=== PATIENT | male | born 1995 | race Caucasian/White ===

== ENCOUNTER 2020-05-12 16:29 | Emergency (ER) | payer MEDICAID, OTHER ==
[~2020-05-12] VITALS: Ht 154.9 cm; Wt 63.5 kg
[2020-05-12 16:33] VITALS: BP 121/66
[2020-05-12] MEDS ORDERED: HYDROcodone-ACET 10/325MG TAB PO ONE (17:15)
== END 2020-05-12 19:43 | disposition home or self-care (01) ==
LOC: ER 16:30
DX: S42.002A Fracture of unspecified part of left clavicle, initial encounter for closed fracture (principal); Z87.891 Personal history of nicotine dependence; X58.XXXA Exposure to other specified factors, initial encounter; Y93.89 Activity, other specified; Y92.89 Other specified places as the place of occurrence of the external cause; Y99.8 Other external cause status
CPT/HCPCS: 73030